=== PATIENT | female | born 1970 | race Caucasian/White ===

== ENCOUNTER 2016-06-28 16:29 | Emergency (ER) | payer MEDICAID, OTHER ==
[2016-06-28] MEDS ORDERED: DEXAMETHASONE SOD PHOS 10 MG/1 ML VIAL ONE (18:18)
[2016-06-28] MEDS ORDERED: PENICILLIN G BENZATHINE 1.2 MMU/2 ML SYRINGE IM ONE (18:18)
[2016-06-28] MEDS ORDERED: ACETAMINOPHEN 500 MG TABLET ONE (18:44)
== END 2016-06-28 19:26 | disposition home or self-care (01) ==
LOC: ED 16:29
DX: J02.9 Acute pharyngitis, unspecified (principal); M79.1 Myalgia; R53.81 Other malaise
CPT/HCPCS: 87880; 87804; 99283 ×2; 96372 ×2; J1100; A9270; J0561

== ENCOUNTER 2016-07-03 22:13 | Emergency (ER) | payer MEDICAID, OTHER ==
[2016-07-03] MEDS ORDERED: AZITHROMYCIN 250 MG TABLET ONE (23:21)
== END 2016-07-03 23:29 | disposition home or self-care (01) ==
LOC: ED 22:13
DX: J40 Bronchitis, not specified as acute or chronic (principal); F17.210 Nicotine dependence, cigarettes, uncomplicated
CPT/HCPCS: 99283 ×2; A9270